=== PATIENT | male | born 1990 | race American Indian/Alaskan Native ===

== ENCOUNTER 2017-04-09 21:48 | Emergency (ER) | payer MEDICAID ==
--- NOTE | 2017-04-09 22:01 | C.PDOC ---
History Of Present Illness 26 year old male brought to the ED by ambulance for intoxication. Patient reports he had a fight with his family, started drinking was told to leave his house. Patient reports the police was called and he was brought to the ED. Patient denies any SI/HI, hallucinations, or other physical complaints. Time Seen by Provider: 04/09/17 21:50 Chief Complaint (Nursing): Substance Abuse History Per: Patient History/Exam Limitations: intoxication Onset/Duration Of Symptoms: Hrs Current Symptoms Are (Timing): Still Present Suicide/Self Injury Attempted (Context): None Modifying Factor(s): Alcohol Associated Symptoms: denies: Depression, Suicidal Thoughts, Suicidal Plan Involuntary Hold By: None Recent travel outside of the [place]: No Additional History Per: Patient Past Medical History Reviewed: Historical Data, Nursing Documentation, Vital Signs Vital Signs: Last Vital Signs Temp 98.7 F 04/09/17 22:10 Pulse 87 04/09/17 22:10 Resp 18 04/09/17 22:10 BP 120/71 04/09/17 22:10 Pulse Ox 98 04/09/17 22:10 - Medical History PMH: Fractures Surgical History: No Surg Hx Family History: States: Unknown Family Hx - Social History Hx Alcohol Use: Yes Hx Substance Use: No Review Of Systems Constitutional: Negative for: Fever, Chills Cardiovascular: Negative for: Chest Pain, Palpitations Respiratory: Negative for: Cough, Shortness of Breath Gastrointestinal: Negative for: Nausea, Vomiting, Abdominal Pain Musculoskeletal: Negative for: Back Pain Skin: Negative for: Rash Neurological: Negative for: Weakness, Numbness Psych: Negative for: Depression, Suicidal ideation Physical Exam - Physical Exam Appears: Non-toxic, No Acute Distress Skin: Normal Color, Warm, Dry Head: Atraumatic, Normacephalic Nose: No Discharge, No Deformity Oral Mucosa: Moist Neck: Normal ROM, Supple Chest: Symmetrical Cardiovascular: Rhythm Regular, No Murmur Respiratory: Normal Breath Sounds, No Rales, No Rhonchi, No Wheezing Gastrointestinal/Abdominal: Soft, No Tenderness, No Distention, No Rebound Extremity: Normal ROM, No Pedal Edema, No Calf Tenderness, No Swelling Neurological/Psych: Oriented x3, Normal Speech, Normal Cognition Medical Decision Making Medical Decision Making: Patient is awake, walking around the ED with a stable gait. Patient is stable enough to be d/c. Disposition - Disposition Disposition: HOME/ ROUTINE Disposition Time: 22:45 Condition: IMPROVED Forms: [facility] (Estonian) - Clinical Impression Clinical Impression: Alcohol abuse - Scribe Statement The provider has reviewed the documentation as recorded by the Scribe Gilles Miller All medical record entries made by the Scribe were at my direction and personally dictated by me. I have reviewed the chart and agree that the record accurately reflects my personal performance of the history, physical exam, medical decision making, and the department course for this patient. I have also personally directed, reviewed, and agree with the discharge instructions and disposition.
[2017-04-09 22:18] VITALS: TEMP 98.7
[2017-04-09 22:57] VITALS: BP 120/80; PULSE 80; RESP 14; O2SAT 99
== END 2017-04-09 22:57 | disposition home or self-care (01) ==
LOC: C.ER 21:48
DX: F10.10 Alcohol abuse, uncomplicated (principal)